=== PATIENT | male | born 1960 | race African-American/Black ===

== ENCOUNTER 2021-11-11 05:14 | Inpatient (IN) | payer OTHER ==
[~2021-11-11] VITALS: Ht 177.8 cm; Wt 122.3 kg
[2021-11-11 05:23] VITALS: BP 212/135
[2021-11-11] MEDS ORDERED: METFORMIN HCL500 M3 PO (05:39)
[2021-11-11] MEDS ORDERED: LIPITOR 40 MG T40 M1 PO (05:39)
[2021-11-11] MEDS ORDERED: FLOMAX0.4 MG PO (05:40)
[2021-11-11 06:07] LABS: ABSOLUTE NEUTROPHILS 15.1 thou/uL (1.4-8.2); BASOPHILS 0.4 % (0.0-2.0); HEMATOCRIT 42.7 % (42.0-52.0); HEMOGLOBIN 13.9 gm/dL (14.0-18.0); LYMPHOCYTES 8.7 % (24.0-44.0); MCH 31.1 pg (26.0-34.0); MCHC 32.6 g/dL (28.0-37.0); MCV 95.5 fL (80.0-100.0); MONOCYTES 6.2 % (1.0-8.0); PLATELET COUNT 192 thou/uL (150-400); POLYS 84.7 % (36.0-66.0); RBC 4.47 mil/uL (4.50-6.00); RDW 13.4 % (10.5-14.5); WBC 17.8 thou/uL (4.0-11.0)
[2021-11-11 06:14] LABS: URINE BILIRUBIN NEGATIVE (Negative); URINE BLOOD 2+ (Negative); URINE CLARITY CLEAR; URINE COLOR YELLOW; URINE GLUCOSE-RANDOM* 3+ (Negative); URINE KETONES TRACE (Negative); URINE LEUKOCYTES-REFLEX NEGATIVE (Negative); URINE PROTEIN (DIPSTICK) NEGATIVE (Negative); URINE SPECIFIC GRAVITY 1.015 (1.005-1.035); URINE UROBILINOGEN 0.2 E.U./dl (0.2-1.0)
[2021-11-11 06:27] LABS: URINE NITRITE-REFLEX POSITIVE (Negative)
[2021-11-11 06:38] LABS: ALBUMIN 3.7 g/dL (3.4-5.0); CALCIUM 9.3 mg/dL (8.5-10.1); CREATININE 1.6 mg/dL (0.7-1.3); POTASSIUM 3.6 mmol/L (3.5-5.1); TOTAL BILIRUBIN 2.2 mg/dL (0.2-1.0); TOTAL PROTEIN 7.3 g/dL (6.4-8.2)
[2021-11-11 06:39] LABS: CASTS None Seen /LPF (None Seen); SQUAMOUS None Seen /LPF (0-3)
[2021-11-11 06:40] LABS: URINE RBC >20 Many /HPF (NONE SEEN); URINE WBC-REFLEX 0-5 Rare /HPF (0-5)
[2021-11-11 06:41] LABS: BACTERIA-REFLEX >30 Many /HPF (None Seen); CRYSTALS None Seen /LPF (None Seen)
--- NOTE | 2021-11-11 07:14 | EKG ---
[address] [address] ELECTROCARDIOGRAM REPORT Name: CHRISTOPHER REYNA Room #: REG SOFIA Monster#: [id number] Admission: 11/11/21 Attend Phys: Discharge: Date of : 58 Report #: [id number] [facility] ED Test Date: 2021-11-11 Test Time: 05:48:39 Pat Name: CHRISTOPHER REYNA Department: Room: Gender: Jig Box Operator: : 1960 Requested By: Piter Chu Order Number: [id number] MD: Luis A Obregon Measurements Intervals [place] Rate: 116 P: 73 ME: 114 QRS: -4 QRSD: 81 T: 178 QT: 361 QTc: 502 Interpretive Statements Sinus tachycardia Abnormal R-wave progression, early transition Borderline repolarization abnormality No previous ECG available for comparison Electronically Signed On 11-11-2021 7:14:32 DTP OPERATOR by Luis A Obregon [email or web address] <ELECTRONICALLY SIGNED> By: Luis A Obregon MD, [facility] 11/11/21 0714 0548 0548 Luis A Obregon MD, FACC /EPI
[2021-11-11 16:10] VITALS: BP 160/93
[2021-11-11 16:28] VITALS: BP 162/88
[2021-11-11 17:36] VITALS: BP 158/102
--- NOTE | 2021-11-11 17:41 | NUR ---
Pt arrived to room 454 from ED via cart. PT is room air. Pt has temp noted. Pt has pain and recieved PRN pain medication. Pt receiving IV fluids. Pt has larios in place. Pt is able to make needs known
[2021-11-11 19:19] VITALS: BP 145/87
[2021-11-11 23:45] VITALS: BP 191/113
--- NOTE | 2021-11-12 00:15 | NUR ---
Pt. restless in the bed and c/o pelvic pain. Had a fever at the first of the shift and po tylenol was given (see emar) which was helpful. Bp elevated and heart rate continues to be tachey in the 120's. (See VS). Ivon MENA called and notified. Prn hydralizine also given for elevated bp (see emar). Po pain med also given.
[2021-11-12 03:18] VITALS: BP 151/98; BP 158/98
--- NOTE | 2021-11-12 04:54 | NUR ---
Pt. up to the recliner chair for comfort. He voices that his pain is much better. Heart rate tachey and bp better (see vs). Gracia catheter patent.
[2021-11-12 05:58] LABS: ABSOLUTE NEUTROPHILS 13.4 thou/uL (1.4-8.2); BASOPHILS 0.2 % (0.0-2.0); EOSINOPHILS 0.1 % (0.0-3.0); HEMATOCRIT 39.5 % (42.0-52.0); HEMOGLOBIN 12.9 gm/dL (14.0-18.0); LYMPHOCYTES 5.5 % (24.0-44.0); MCH 31.1 pg (26.0-34.0); MCHC 32.7 g/dL (28.0-37.0); MCV 95.2 fL (80.0-100.0); MONOCYTES 5.4 % (1.0-8.0); PLATELET COUNT 177 thou/uL (150-400); POLYS 88.8 % (36.0-66.0); RBC 4.15 mil/uL (4.50-6.00); RDW 13.6 % (10.5-14.5); WBC 15.1 thou/uL (4.0-11.0)
[2021-11-12 06:16] LABS: CALCIUM 8.6 mg/dL (8.5-10.1); CREATININE 1.2 mg/dL (0.7-1.3); POTASSIUM 3.5 mmol/L (3.5-5.1)
--- NOTE | 2021-11-12 06:30 | NUR ---
Pt. heart rate has been escalating up into the 130's and Ivon MENA was called with new order for stat EKG. Pt. offers no complaints and is sitting up in recliner chair.
--- NOTE | 2021-11-12 07:17 | EKG ---
[address] [place] [address] ELECTROCARDIOGRAM REPORT Name: CHRISTOPHER REYNA Room #: 454-P ADM IN M.R.#: [id number] Admission: 11/11/21 Attend Phys: Lauren Hernandez Discharge: Date of : 58 Report #: [id number] [facility] Test Date: 2021-11-12 Test Time: 06:57:49 Pat Name: CHRISTOPHER REYNA Department: Room: 454 P Gender: M Steam Table Worker: MARK ANTHONY : 1960 Requested By: Ivon Mcnally Order Number: [id number] MD: Luis A Obregon Measurements Intervals [place] Rate: 121 P: 51 RI: 144 QRS: 0 QRSD: 79 T: QT: 318 QTc: 452 Interpretive Statements Sinus tachycardia Abnormal R-wave progression, early transition Borderline T abnormalities, lateral leads Compared to ECG 11/11/2021 05:48:39 T-wave abnormality now present Electronically Signed On 11-12-2021 7:17:33 CONDENSER SETTER by Luis A Obregon [email or web address] <ELECTRONICALLY SIGNED> By: Luis A Obregon MD, [facility] 11/12/21716 0657 Luis A Obregon MD, FACC /EPI
[2021-11-12 07:36] VITALS: BP 149/94
[2021-11-12 10:35] LABS: APTT 35.3 Seconds (24.5-32.8); INR 1.05; PROTIME 11.4 Seconds (10.5-12.1)
--- NOTE | 2021-11-12 11:33 | NUR ---
PT ADMITTED RELATED TO AUR, UTI, SEPSIS, AND JULIO. CM REVIEWED CHART AND SPOKE WITH CARE TEAM. CM MET WITH PT AND SPOUSE GABY AT BEDSIDE THIS DAY. PT APPEARED TO BE A&O X4. CM ROLE INTRODUCED. PT INDICATED HE AND SPOUSE RESIDE I NA DUPLEX WITH 2 STEPS TO ENTER THROUGH THE FRONT AND 7 STEPS THROUGH THE GARAGE. PT INDICATED HE HAD BEEN INDEPENDENT WITH GAIT AND ADLS BIT GATHERER. PT INDICATED NO DME BIT GATHERER. PT INDICATED HIS PCP IS DR. YO BEEBE. 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 CN NOTIFIED UR NURSE TO PASS ON TO REGISTRATION. PT INDICATED HE PLANS TO RETURN HOME ONCE MEDICALLY STABLE. ONCOLOGY CONSULTED. PT WAS TO HAVE BONE BIOPSY DONE THIS DAY BUT THEY AREN'T ABLE TO COMPLETE IT THEY ARE SHORT A TECH. PT IS TO DC WITH A WRIGHT CATHETER ONCE MEDICALLY STABLE. CM FOLLOWING SHOULD PT HAVE ANY DC NEEDS.
[2021-11-12 12:12] VITALS: BP 153/97
[2021-11-12 19:12] VITALS: BP 180/95
--- NOTE | 2021-11-13 00:07 | NUR ---
ASSUMED PT CARE AT AROUND 1915 HRS. PT TRANSFERRED FROM [address] [place] [address] ON TELEMETRY-IN THE 120'S WITH ACTIVITY AND LOWER 100'S WHILE AT REST. HE DENIES ANY CHEST DISCOMFORT. HE IS OBERSVED SITTING IN THE RECLINER IN ROOM, ILL APPEARING. C/O PAIN IN GROIN AND SUPRA PUBIC AREA, WRIGHT IN PLACE TO D/D.PT OBSERVED AMBULATING SAFELY IN ROOM AND REMAINS UP AD MANNY. HE CALLS APPROPRIATELY. HE ALSO C/O ABDOMINAL CRAMPING AND THE NEED TO HAVE DIARHOEA WHICH HE HASNT. ON ROOM AIR, NO SOA NOTED.
[2021-11-13 00:45] VITALS: BP 108/109
[2021-11-13 05:53] LABS: HEMATOCRIT 38.8 % (42.0-52.0); HEMOGLOBIN 12.8 gm/dL (14.0-18.0); MCH 31.3 pg (26.0-34.0); MCV 95.1 fL (80.0-100.0); RBC 4.08 mil/uL (4.50-6.00); RDW 13.8 % (10.5-14.5); WBC 13.9 thou/uL (4.0-11.0)
[2021-11-13 06:05] LABS: ALBUMIN 2.6 g/dL (3.4-5.0); CALCIUM 8.3 mg/dL (8.5-10.1); CREATININE 1.2 mg/dL (0.7-1.3); PHOSPHORUS 1.8 mg/dL (2.6-4.7); POTASSIUM 3.6 mmol/L (3.5-5.1)
[2021-11-13 07:19] VITALS: BP 159/96
--- NOTE | 2021-11-13 10:01 | NUR ---
Assumed care of pt at 0700. Pt a&ox4. C/o generalized abd and left hip pain. IVF and IV antibiotics infusing. Gracia catheter in place. Pt emotional this am about his condition. Up ad tanisha in the room. RA. HICKS on the monitor. Call light within reach. Will continue to monitor.
--- NOTE | 2021-11-13 10:50 | EKG ---
[address] [place] [address] ELECTROCARDIOGRAM REPORT Name: CHRISTOPHER REYNA Room #: 433-I ADM IN M.R.#: [id number] Admission: 11/11/21 Attend Phys: Lauren Hernandez Discharge: Date of : 58 Report #: [id number] [facility] Test Date: 2021-11-13 Test Time: 08:44:56 Pat Name: CHRISTOPHER REYNA Department: Room: 433 I Gender: M Financial Advisor: : 1960 Requested By: Heather Ochoa Order Number: [id number] MD: Ralph Morris Measurements Intervals [place] Rate: 108 P: 34 WA: 101 QRS: -13 QRSD: 80 T: -23 QT: 403 QTc: 540 Interpretive Statements Sinus tachycardia Abnormal R-wave progression, early transition Nonspecific T wave abnormality Compared to ECG 11/12/2021 06:57:49 T-wave abnormality no longer present Electronically Signed On 11-13-2021 10:50:15 SEED ANALYSIS LABORATORY ASSISTANT by Ralph Morris [email or web address] <ELECTRONICALLY SIGNED> By: Ralph Morris MD 11/13/21 1050 0844 0844 MD DENIS [place]
[2021-11-13 13:43] VITALS: BP 133/80
[2021-11-13 15:10] VITALS: BP 151/84
[2021-11-13 20:12] VITALS: BP 148/82
[2021-11-13 21:47] LABS: URINE BILIRUBIN NEGATIVE (Negative); URINE BLOOD 3+ (Negative); URINE CLARITY CLEAR; URINE COLOR YELLOW; URINE GLUCOSE-RANDOM* 3+ (Negative); URINE KETONES 1+ (Negative); URINE LEUKOCYTES-REFLEX NEGATIVE (Negative); URINE NITRITE-REFLEX NEGATIVE (Negative); URINE PROTEIN (DIPSTICK) 1+ (Negative); URINE UROBILINOGEN 0.2 E.U./dl (0.2-1.0)
[2021-11-13 22:09] LABS: BACTERIA-REFLEX 1-9 Few /HPF (None Seen); CASTS None Seen /LPF (None Seen); CRYSTALS None Seen /LPF (None Seen); SQUAMOUS 0-3 Few /LPF (0-3); URINE RBC 3-10 Few /HPF (NONE SEEN); URINE WBC-REFLEX 6-15 Few /HPF (0-5)
[2021-11-14] VITALS (7 sets, daily range): BP systolic 110–191; BP diastolic 54–113
[2021-11-14 02:57] LABS: ABSOLUTE NEUTROPHILS 9.7 thou/uL (1.4-8.2); BASOPHILS 0.3 % (0.0-2.0); EOSINOPHILS 0.8 % (0.0-3.0); HEMATOCRIT 38.1 % (42.0-52.0); HEMOGLOBIN 12.5 gm/dL (14.0-18.0); LYMPHOCYTES 8.9 % (24.0-44.0); MCH 31.2 pg (26.0-34.0); MCHC 32.8 g/dL (28.0-37.0); MCV 95.2 fL (80.0-100.0); MONOCYTES 9.8 % (1.0-8.0); PLATELET COUNT 252 thou/uL (150-400); POLYS 80.2 % (36.0-66.0); RDW 14.1 % (10.5-14.5); WBC 12.1 thou/uL (4.0-11.0)
[2021-11-14 03:06] LABS: ALBUMIN 2.6 g/dL (3.4-5.0); CALCIUM 8.1 mg/dL (8.5-10.1); CREATININE 1.2 mg/dL (0.7-1.3); MAGNESIUM 1.5 mg/dL (1.8-2.4); PHOSPHORUS 2.1 mg/dL (2.6-4.7); POTASSIUM 3.5 mmol/L (3.5-5.1); TOTAL BILIRUBIN 0.9 mg/dL (0.2-1.0); TOTAL PROTEIN 6.9 g/dL (6.4-8.2)
--- NOTE | 2021-11-14 07:16 | NUR ---
ASSUMED CARE AT 1900, PT PREFERS LAYING ON THE RECLINER, A & OX4, REMAINS ON V TACH AT REST, , 9 SERIES OF VFIB IDENTIFIED, NOTIFIED PROFESSIONAL ADVISOR GLOBAL RECRUITER, STAT LAB COMPLETED, PT REMAINS ON VTACH, MADE ANOTHER UPDATE TO THE ROBOT OPERATOR, EKG START COMPLETED, VTACH INDICATED, NEW ORDER IN PLACE, PT COMPLIANT WITH TX, NO ADVERSE REACTION NOTED, SLEPT INTERMITTENTLY, INCOMING NURSE NOTIFIED OF THE PROGRESS WILL CONTINUE TO MONITOR.
--- NOTE | 2021-11-14 10:21 | NUR ---
ASSUMED PT CARE THIS AM. INFORMED HOSPITALIST ABOUT ELEVATED HR AND EKG. GIVEN IV PUSH METOPROLOL THIS AM. STARTED DILTIAZEM DRIP THIS AM PER DR ORDERED DUE TO ABNORMAL HR AND SUSTAINED TACHY. CONSULTED CARDIOLOGY. WILL TRANSFER TO CCU AND HOUSE SUP IS AWARE. AWAITING FOR THE ROOM. WILL CONTINUE TO MONITOR PT. FOLLOW POC.
--- NOTE | 2021-11-14 12:26 | EKG ---
[place] [address] [facility] [place] [address] ELECTROCARDIOGRAM REPORT Name: CHRISTOPHER REYNA Room #: 241-P ADM IN M.R.#: [id number] Admission: 11/11/21 Attend Phys: Lauren Hernandez Discharge: Date of : 58 Report #: [id number] [facility] Test Date: 2021-11-14 Test Time: 08:38:39 Pat Name: CHRISTOPHER REYNA Department: Room: 241 Gender: M Heating And Ventilation Engineer: AMELIA : 1960 Requested By: Heather Ochoa Order Number: [id number] MD: Ralph Morris Measurements Intervals [place] Rate: 174 P: MD: QRS: -8 QRSD: 87 T: 175 QT: 272 QTc: 463 Interpretive Statements Atrial fibrillation with rapid V-rate Abnormal R-wave progression, early transition Repolarization abnormality, prob rate related Compared to ECG 11/14/2021 06:33:17 Early repolarization now present Sinus tachycardia no longer present Ventricular premature complex(es) no longer present T-wave abnormality no longer present Electronically Signed On 11-14-2021 12:26:21 DRUG SAFETY SPECIALIST by Ralph Morris [email or web address] <ELECTRONICALLY SIGNED> By: Ralph Morris MD 11/14/21 1226 Ralph Morris MD /EPI
--- NOTE | 2021-11-14 12:27 | EKG ---
[place] [address] [facility] [place] [address] ELECTROCARDIOGRAM REPORT Name: CHRISTOPHER REYNA Room #: 241-P ADM IN M.R.#: [id number] Admission: 11/11/21 Attend Phys: Lauren Hernandez Discharge: Date of : 58 Report #: [id number] [facility] Test Date: 2021-11-14 Test Time: 06:33:17 Pat Name: CHRISTOPHER REYNA Department: Room: 241 Gender: M Concrete Truck Driver: [id number] : 1960 Requested By: Funmilayo Suh Order Number: [id number] MD: Ralph Morris Measurements Intervals [place] Rate: 137 P: 41 AR: 111 QRS: -9 QRSD: 73 T: QT: 330 QTc: 499 Interpretive Statements Atrial fibrillation converting to sinus rhythm Paired ventricular premature complexes Abnormal R-wave progression, early transition Borderline T abnormalities, inferior leads Baseline wander in lead(s) V2,V3 Compared to ECG 11/13/2021 08:44:56 Ventricular premature complex(es) now present T-wave abnormality still present Electronically Signed On 11-14-2021 12:27:49 SKI PATROL by Ralph Morris [email or web address] <ELECTRONICALLY SIGNED> By: Ralph Morris MD 11/14/21 1227 0633 0633 Ralph Morris MD /EPI
--- NOTE | 2021-11-14 15:36 | NUR ---
REPRT CALLED TO [facility]A AND PT TRANSFERRED TO [facility] [address]. CONTACT DR. JADE FOR A UROJET THE PT'S FOELY IS BOTHERING HIM.
--- NOTE | 2021-11-14 17:45 | NUR ---
Pt transferred from ICU. Pt is A & O x4. Pt is x 1 assist with ADLs and cares. Pt is room air. Pt received medications as ordered and also received PRN medications. Pt is SR on the tele. Pt has larios in place. Pt is able to make needs known
[2021-11-15 03:15] VITALS: BP 139/87
--- NOTE | 2021-11-15 03:32 | NUR ---
Assumed pt care at 1900. Pt is alert and oriented. Pt is sitting on the chair. No sign of distress noted in pt. Pt verbalizes pain. Pain med administered to pt. Assessment completed and documented. Vital signs stable. Gracia cath in place but to be discontinued in the 0600. Pt is NPO after midnight for a scheduled biopsy. No acute event through the night. Continue to monitor. No further needs at this time.
[2021-11-15 08:01] LABS: HEMATOCRIT 36.7 % (42.0-52.0); HEMOGLOBIN 12.2 gm/dL (14.0-18.0); MCH 31.2 pg (26.0-34.0); MCHC 33.2 g/dL (28.0-37.0); MCV 94.2 fL (80.0-100.0); PLATELET COUNT 264 thou/uL (150-400); RDW 13.7 % (10.5-14.5); WBC 12.1 thou/uL (4.0-11.0)
[2021-11-15 08:05] VITALS: BP 132/81
[2021-11-15 08:10] LABS: ALBUMIN 2.2 g/dL (3.4-5.0); CALCIUM 8.1 mg/dL (8.5-10.1); CREATININE 1.2 mg/dL (0.7-1.3); MAGNESIUM 1.9 mg/dL (1.8-2.4); POTASSIUM 3.2 mmol/L (3.5-5.1); TOTAL BILIRUBIN 0.7 mg/dL (0.2-1.0); TOTAL PROTEIN 6.1 g/dL (6.4-8.2)
[2021-11-15 08:37] LABS: ABSOLUTE NEUTROPHILS 8.3 thou/uL (1.4-8.2); METAMYELOCYTES 1 %; NUCLEATED RBCS 1 /100WBC
[2021-11-15 08:40] LABS: TOXIC GRANULATION 1+
--- NOTE | 2021-11-15 08:46 | HC ---
[facility] [place] [address] CONSULTATION Name: CHRISTOPHER REYNA Room #: 209-P [facility] IN M.R.#: [id number] Admission: 11/11/21 Attend Phys: Lauren Hernandez Discharge: Date of : 58 Report #: [id number] THIS REPORT FOR: cc: NO FAMILY PHYSICIAN or PCP NO FAMILY PHYSICIAN or PCP Ralph Morris MD ~ DATE OF SERVICE: 11/14/2021 CARDIOLOGY CONSULTATION INDICATION: Atrial fibrillation. HISTORY OF PRESENT ILLNESS: This is a pleasant 61-year-old gentleman with a history of diabetes mellitus, paroxysmal atrial fibrillation, hyperlipidemia, who initially presented with dysuria, diagnosed with urosepsis. He was treated with antibiotics and hydration. Overnight, his rhythm changed into atrial fibrillation with rapid ventricular rate. He felt diaphoretic with a flushing sensation. He denies any chest pains, palpitations or orthopnea. He was started on IV Cardizem and given Lasix for fluid overload. His rhythm has converted back to sinus and he remains clinically stable. PAST MEDICAL HISTORY: The patient reports having history of AFib years ago at [facility], details unavailable. Not started on any medications. History of diabetes mellitus, hypercholesterolemia. ALLERGIES: None. MEDICATIONS: At home include metformin twice a day, Lipitor 40 mg and tamsulosin. SOCIAL HISTORY: Denies tobacco use. FAMILY HISTORY: Negative for premature CAD. REVIEW OF SYSTEMS: A full 10-point review of systems performed. Only the pertinent positives and negatives are described in the HPI. PHYSICAL EXAMINATION: VITAL SIGNS: Blood pressure is 130/70, heart rate is 100 beats per minute. GENERAL APPEARANCE: He is a well-developed, well-nourished male in no acute distress. HEENT: Normocephalic, atraumatic. Oral mucosa moist. NECK: Supple. LUNGS: Diminished breath sounds at the bases. CARDIAC: Tachycardic. S1, S2 positive. ABDOMEN: Soft, nontender. [facility] [address] [place] [address] CONSULTATION Name: CHRISTOPHER REYNA Room #: 209-P [facility] IN .R.#: [id number] Admission: 11/11/21 Attend Phys: Lauren Hernandez Discharge: Date of : 58 Report #: [id number] EXTREMITIES: No cyanosis, trace edema. DIAGNOSTIC DATA: ECG reveals atrial fibrillation with rapid rates. LABORATORY DATA: Troponin is negative. White count is 12.1, hemoglobin is 12.5, creatinine is 1.2. CT scan reveals multiple sclerotic bone lesions suspicious for metastatic disease. ASSESSMENT AND PLAN: 1. Atrial fibrillation with rapid rates, prior history, but not on any medications. Occurred during this hospitalization, probably due to fluid overload/CHF. Converted to sinus rhythm on Cardizem drip. We will change to oral beta ny therapy. We will need an echocardiogram and eventual ischemic evaluation. Hold on anticoagulation as he will be undergoing an evaluation for malignancy. 2. Fluid overload/congestive heart failure, probably from hydration. Continue with Lasix therapy. Await echo findings. 3. Urosepsis, continue with antibiotics. 4. Oncology, multiple sclerotic bone lesions, continue evaluation and workup. <ELECTRONICALLY SIGNED> By: Ralph Morris MD 11/15/21 0846 1232 1840 Ralph Morris MD /nt
--- NOTE | 2021-11-15 10:57 | 2DMMODE ---
[facility] [place] [place] [address] [place] [address] 2 D/M-MODE ECHOCARDIOGRAM Name: CHRISTOPHER REYNA Room #: 209-P ADM IN M.R.#: [id number] Admission: 11/11/21 Attend Phys: Lauren Hernandez Discharge: Date of : 58 Report #: [id number] THIS REPORT FOR: cc: NO FAMILY PHYSICIAN or PCP NO FAMILY PHYSICIAN or PCP Ralph Morris MD ~ APPROVED REPORT Study performed: 11/15/2021 09:42:23 EXAM: Comprehensive 2D, Doppler, and color-flow Echocardiogram Patient Location: Bedside Room #: 209 Status: routine BSA: 2.35 HR: 104 bpm BP: 132/81 mmHg Rhythm: Tachycardia Other Information Study Quality: Technically Difficult Technically limited study due to body habitus, inability to position patient. Indications Diabetes Atrial Fibrillation Hypertension/HDD Aortic Valve AoV Peak Sergey.: 1.58 m/s AO Peak Gr.: 9.93 mmHg LVOT Max P.23 mmHg LVOT Max V: 1.03 m/s Mitral Valve E/A Ratio: 1.2 MV Decel. Time: 211.12 ms MV E Max Sergey.: 0.87 m/s MV A Sergey.: 0.75 m/s MV PHT: 61.22 ms Pulmonary Vein P Vein S: 0.45 m/s P Vein A: 0.28 m/s P Vein D: 0.40 m/s P Vein A Dur.: 103.[address] [facility] [place] [address] [place] [address] 2 D/M-MODE ECHOCARDIOGRAM Name: CHRISTOPHER REYNA Room #: 209-P ADM IN M.R.#: [id number] Admission: 11/11/21 Attend Phys: Lauren Bhat Discharge: Date of : 58 Report #: [id number] P Vein S/D Ratio: 1.13 Left Ventricle The left ventricle is normal size. There is normal LV segmental wall motion. There is normal left ventricular wall thickness. The left ventricular systolic function is normal. The left ventricular ejection fraction is within the normal range. LVEF is 55-60%. Grade II - pseudonormal filling dynamics. Right Ventricle The right ventricle is normal size. The right ventricular systolic function is normal. Atria The left atrium size is normal. The right atrium size is normal. Aortic Valve The aortic valve is normal in structure. The Aortic valve is sclerotic. Trace aortic regurgitation. There is no aortic valvular stenosis. Mitral Valve The mitral valve is normal in structure. Trace mitral regurgitation. No evidence of mitral valve stenosis. Tricuspid Valve The tricuspid valve is normal in structure. There is no tricuspid valve regurgitation noted. Pulmonic Valve The pulmonary valve is normal in structure. There is no pulmonic valvular regurgitation. Great Vessels The aortic root is normal in size. The inferior vena cava is not well visualized. Pericardium There is no pericardial effusion. <Conclusion> The left ventricle is normal size. There is normal left ventricular wall thickness. The left ventricular systolic function is normal. Grade II - pseudonormal filling dynamics. [facility] [place] [place] [address] [place] [address] 2 D/M-MODE ECHOCARDIOGRAM Name: AXELCHRISTOPHER Room #: 209-P [facility] IN M.R.#: [id number] Admission: 11/11/21 Attend Phys: Lauren Bhat Discharge: Date of : 58 Report #: [id number] The right ventricle is normal size. The left atrium size is normal. The Aortic valve is sclerotic. Trace mitral regurgitation. <ELECTRONICALLY SIGNED> By: Ralph Morris MD 11/15/21 1056 55 Ralph Morris MD /INF
[2021-11-15 11:00] VITALS: BP 143/87
--- NOTE | 2021-11-15 12:53 | EKG ---
[address] [place] [address] ELECTROCARDIOGRAM REPORT Name: CHRISTOPHER REYNA Room #: 209-P ADM IN M.R.#: [id number] Admission: 11/11/21 Attend Phys: Lauren Hernandez Discharge: Date of : 58 Report #: [id number] [facility] Test Date: 2021-11-15 Test Time: 09:30:57 Pat Name: CHRISTOPHER REYNA Department: Room: 209 P Gender: M Antenna Machine Operator: MARK ANTHONY : 1960 Requested By: Katharine Amador Order Number: [id number] MD: Luis A Obregon Measurements Intervals [place] Rate: 104 P: 19 [place]: 76 QRS: -13 QRSD: 82 T: -87 QT: 332 QTc: 437 Interpretive Statements Sinus tachycardia Abnormal R-wave progression, early transition Borderline repolarization abnormality Compared to ECG 11/14/2021 08:38:39 Atrial fibrillation no longer present Electronically Signed On 11-15-2021 12:52:46 ASSISTANT GROCERY by Luis A Obregon [email or web address] <ELECTRONICALLY SIGNED> By: Luis A Obregon MD, [facility] 11/15/21 1252 9 9 Luis A Obregon MD, FACC /EPI
--- NOTE | 2021-11-15 14:52 | NUR ---
spoke with patient who admits with UTI/Sepsis. Patient resides with . Started new job at [employer] and reports benefits to begin Nov 27. Patient noted to not have health insurance. Gave patient safety net clinic information to review. Patient reports he believes he still might have coverage from prev job at [email or web address]. Copies of [employer] and faxed to [employer] to review. [employer] following.
[2021-11-15 15:00] VITALS: BP 112/77
--- NOTE | 2021-11-15 18:35 | NUR ---
ASSESSMENT CHARTED - MEDS PER MAR - GIVEN HYDROCODONE X 1 FOR CO'S OF PAIN IN R HIP WITH GOOD EFFECT - PT SLEEPING. DORA DIET AND FLUIDS. PT HAD NUC BONE SCAN COMPLETED THIS SHIFT WILL HAVE VQ SCAN DONE TOMORROW. PT HAD WRIGHT REMOVED THIS AM - VOIDED ONLY 75 CC OF URINE STATED HE FELT THAT HE HAD EMPTIED HIS BLADDER - PT GIVEN LASIX AND CALLED OUT NOT AFTER SAYING HE FELT THAT HIS BLADDER WAS GOING TO EXPLODE - WRIGHT CATH REPLACED WITH 14 CAUDE - ATTEMPTED X 2 WITH REG CATH - EACH TIME A SMALL AMPOUNT OF BLOOD TINGED URIN IN TUBING AND WHEN NO FLOW REMOVED AND CLOT FOUND ON END AFTERATTMEPTING TO IRRIGATE. PY VERY APPREHENSIVE AND ONCE HER RELAXED - WRIGHT STARTED TO FLOW. BLOOD TINGED URINE AT FIRST NO YELLOW URINE. ECHO COMPLETED ORDERED. PT UP IN THE CHHIAR FOR MOST OF THE DAY. NO CO'S AT THE PRESENT TIME. 2
[2021-11-15 19:07] LABS: GLOBULIN TOTAL 2.7 g/dL (2.2-3.9); M-SPIKE Not Observed g/dL (Not Observed)
[2021-11-15 20:30] VITALS: BP 136/88
[2021-11-16] VITALS (7 sets, daily range): BP systolic 122–168; BP diastolic 84–102
--- NOTE | 2021-11-16 04:37 | NUR ---
RECEIVED PATIENT AT 1900H.PATIENT IS ALERT AND ORIENTED X4.WITH WRIGHT CATHETER INTACT DRAINING CLEAR YELLOWISH URINE.ASSESSMENT DONE CHARTED.MEDS GIVEN PER JAN.KEPT PATIENT NPO FROM MIDNIGHT.ALL NEEDS ATTENDED.TO CONTINOUSLY MONITOR.
--- NOTE | 2021-11-16 16:35 | NUR ---
no documentation from [facility] whether insurance [employer] is active or inactive. Requested UR tech inquire. UR tech reports patient works at [email or web address] and [email or web address]. UR tech reports patient chose not benefits with [email or web address] and signed for benefits with [email or web address]. These benefits not active until Nov 27. Prec employee Bishnu Alexandra with [employer] has termed. tech inquiring if patient may have attempted to obtain benefits from [email or web address] for [employer] insurance. At this time patient noted with no health insurance. [facility] noted in as pharmacy to possible assist with medication assistance.
--- NOTE | 2021-11-16 18:38 | NUR ---
ASSESSMENT CHARTED - MEDS PER MAR - NO CO'S OF PAIN OR NAUSEA. DORA DIET AND FLUIDS. ACCUCHECKS CHARTED COVERED PER SSI. STARTED OF XERELTO THIS EVENING ORDERED. PT TO HAVE VQ SCAN TOAMOEER. PT WILL D/C WITH WRIGHT EDUCATION STARTED WITH PT AND WWIFE RE HOME CARE OF WRIGHT AND USE OF LEG BAG. WILL REINFORCE TOMORROW. UP IN THE CHIAR FOR MOST OF THE DAY. NO CO'S AT THE PRESENT TIME.
[2021-11-17 02:04] VITALS: BP 149/92
--- NOTE | 2021-11-17 04:05 | NUR ---
RECEIVED PATIENT AT 1900H.PATIENT IS ALERT AND ORIENTED X4.WITH WRIGHT CATHETER INTACT DRAINING CLEAR YELLOWISH URINE.ALL NEEDS ATTENDED.TO CONTINOUSLY MONITOR.
[2021-11-17 04:30] VITALS: BP 144/94
[2021-11-17 07:56] VITALS: BP 135/80
[2021-11-17] MEDS ORDERED: XARELTO20 MG PO ×2 (09:36→15:29)
[2021-11-17] MEDS ORDERED: TOPROL XL100 MG PO ×2 (09:36→15:29)
[2021-11-17] MEDS ORDERED: AMLODIPINE BESY10 MG PO ×2 (09:36→15:29)
[2021-11-17 11:39] VITALS: BP 113/70
[2021-11-17] MEDS ORDERED: LANTUS SUBQ ×2 (11:51→15:29)
[2021-11-17] MEDS ORDERED: TRADJENTA5 MG PO ×2 (11:51→15:29)
[2021-11-17] MEDS ORDERED: HUMALOG100 UNIT/1 SUBQ ×2 (11:51→15:29)
[2021-11-17 13:00] VITALS: BP 113/70
[2021-11-17] MEDS ORDERED: FREESTYLE LANC1 EACH MISCELL (15:29)
[2021-11-17] MEDS ORDERED: LIPITOR 40 MG T40 M1 PO (15:29)
[2021-11-17] MEDS ORDERED: EASY TOUCH SUBQ (15:38)
--- NOTE | 2021-11-17 16:12 | NUR ---
PT WITH DC ORDERS FOR HOME. CHANGED PT PHARMACY TO [facility]. FAXED FACESHEET AND CALLED PHARMACY TO VERIFY HOW MUCH MEDS WOULD COST. [facility] VOUCHING MEDS FOR PT. COST FOR VOUCHING MEDS FOR PT IS $1400.
--- NOTE | 2021-11-17 16:56 | NUR ---
ASSESSMENT CHARTED - MEDS PER LATA - DORA DIET AND FLUIDS. NO CO'S OF PAIN OR NAUSEA. UP AD MANNY IN ROOM - ACCUCHECKS CHARTED - COVERED PER SSI. PT INSTRUCTED ON USE OF LEG BAG FOR HOME USE AND EDUCATION GIVEN RE HOME INSULIN AND USE OF SYRINGES- STATED UNDERSTANIDNG OF INSTRUCTION GIVEN. PRESENT AT TIME OF INSTRUCTION. PT CHANGE WRIGHT FROM LARGE BAG TO LEG BAG PRIOR TO D/C. PT HOME THIS EVEVING - INSTRUCTION RE HOME MEDS/ CARE AND FOLLOW UP GIVEN TO PATIENT AND - STATED UNDERSTANDING OF INSTRUCTION GIVEN - LEFT UNIT VIA WHEELCHAIR - HOME VIA PVT VEHICLE ACCOMAPNIED BY - NO CO'S AT TIME OF D/C.
== END 2021-11-17 17:03 | disposition home or self-care (01) | DRG 308 ==
LOC: ER 05:14 → 2N 12:23 → EROBS 12:23 → 4W 16:37 → 4S 11-12 19:14 → ICU 11-14 12:02 → 2N 11-14 15:26
PROVIDERS: Emergency Medicine; Internal Medicine; Nurse Practitioner; ADMIT Hospitalist; ATTEND Hospitalist
DX: I48.91 Unspecified atrial fibrillation (principal); I50.31 Acute diastolic (congestive) heart failure; N12 Tubulo-interstitial nephritis, not specified as acute or chronic; N17.9 Acute kidney failure, unspecified; Z79.01 Long term (current) use of anticoagulants; Z20.822 Contact with and (suspected) exposure to COVID-19; E78.5 Hyperlipidemia, unspecified; F41.9 Anxiety disorder, unspecified; F32.A Depression, unspecified; I16.0 Hypertensive urgency; B96.1 Klebsiella pneumoniae [K. pneumoniae] as the cause of diseases classified elsewhere; I11.0 Hypertensive heart disease with heart failure
CPT/HCPCS: 10045; 10081; 10100